=== PATIENT | female | born 1975 | race Caucasian/White ===

== ENCOUNTER 2019-06-26 16:21 | Emergency (ER) | payer MEDICARE, MEDICAID, SELFPAY ==
[2019-06-26 16:26] VITALS: BP 144/105; PULSE 117; RESP 17; TEMP 36.7; O2SAT 93
--- NOTE | 2019-06-26 16:31 | CTR_ITS ---
PROCEDURE INFORMATION: Exam: CT Head Without Contrast Exam date and time: 06/26/2019 4:41 PM Age: 43 years old Clinical indication: Speech disturbance and weakness, facial; Slurred speech; Additional info: Facial droop, left sided. Slurred speech TECHNIQUE: Imaging protocol: Computed tomography of the head without contrast. Total DLP: 792.91 mGy-cm Radiation optimization: All CT scans at this facility use at least one of these dose optimization techniques: automated exposure control; mA and/or kV adjustment per patient size (includes targeted exams where dose is matched to clinical indication); or iterative reconstruction. COMPARISON: No relevant prior studies available. FINDINGS: Brain: No acute intracranial hemorrhage, cerebral edema, or midline shift. Ventricles: No hydrocephalus. Bones/joints: No acute fracture. Sinuses: No acute sinusitis. Mastoid air cells: Visualized mastoid air cells are well aerated. Soft tissues: Unremarkable. CT/CT head wo con* [id number] IMPRESSION: No acute intracranial abnormality. Radiation Dose CTDIVOL = (mGy): DLP = 792.91 (mGy-cm)
--- NOTE | 2019-06-26 16:31 | ECG_ITS ---
Measurements Intervals [place] Rate: 110 P: 64 KS: 169 QRS: 74 QRSD: 102 T: -64 QT: 332 QTc: 450 SINUS TACHYCARDIA LOW QRS VOLTAGE IN PRECORDIAL LEADS [QRS DEFLECTION < 1.0 mV IN CHEST LEADS] ST DEVIATION AND MODERATE T-WAVE ABNORMALITY, CONSIDER ANTEROLATERAL ISCHEMIA [-0 [-0.1+ mV T WAVE IN V3-V6] ST DEVIATION AND MODERATE T-WAVE ABNORMALITY, CONSIDER INFERIOR ISCHEMIA [-0.1+ mV mV mV mV T WAVE IN II/aVF] No previous ECG available for comparison Electronically Signed On 06-26-2019 19:24:11 CDT by Deidre Graham M.D. [id number]
--- NOTE | 2019-06-26 16:32 | W.ED.NEUROSD ---
HPI - Neuro Symptoms/Deficit General: Chief Complaint: Neuro Symptoms/Deficit Stated Complaint: facial drooping Time Seen by Provider: 06/26/19 16:27 Source: patient Mode of arrival: ambulatory Limitations: no limitations History of Present Illness: HPI Narrative: 43-year-old female who states that last night she started getting right sided facial droop this and numbness. She states she had some difficulty speaking due to difficulty moving the right side of her mouth. She has no other symptoms. She denies any visual deficits. She denies any weakness. 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 Onset (ago): day(s) Timing confirmed by: spouse Location: right face History of same: No Severity: moderate Quality: weak Relieving factors: none Exacerbating factors: none Associated symptoms: Deny chest pain, headache(s), nausea or vomiting Review of Systems Const: Denies: fever, chills, body aches or change in appetite Eyes: Denies: blurry vision or eye discomfort ENMT: Denies: throat pain or dental pain Card: Denies: chest pain Resp: Denies: shortness of breath GI: Denies: abdominal pain, nausea, vomiting or diarrhea : Denies: painful urination Musc: Denies: neck pain or back pain Skin/Breast: Denies: rash Neuro: Denies: headache Psych: Denies: depression Mark/Lymph: Denies: easy bruising All/Imm: Denies: hives PFSH ED PFSH: Social History Smoking and tobacco status: current every day smoker NIH stroke score NIHSS: Level Of Consciousness - 1a: 0 Level Of Consciousness Questions - 1b: Both Correct Level Of Consciousness Commands - 1c: Both Correct Best Gaze - 2: Normal Visual Howard - 3: No Visual Loss Facial Palsy - 4: Partial Paralysis Motor Arm Right - 5: No Drift Motor Arm Left - 5: No Drift Motor Leg Right - 6: No Drift Motor Leg Left - 6: No Drift Limb Ataxia - 7: Absent Sensory - 8: Normal Best Language - 9: No Aphasia Dysarthia - 10: Normal Extinction And Inattention - 11: 0 Score: Total Score: 2 Physical Exam Const: COMMON NORMALS: no apparent distress, oriented x3 and healthy appearing HENMT: COMMON NORMALS: normocephalic and head/scalp atraumatic HEAD & SCALP: normocephalic and atraumatic Eye: COMMON NORMALS: PERRL and EOMs intact bilaterally PUPIL: Yes PERRL Neck/C-Spine: COMMON NORMALS: full ROM and supple Chest: COMMONS NORMALS: inspection of chest normal and palpation of chest normal Resp: COMMON NORMALS: normal respiratory effort, no retractions, no use of accessory muscles and clear to auscultation bilaterally AUSCULTATION: clear to auscultation bilaterally Cardio: COMMON NORMALS: regular rate, regular rhythm and no murmurs RATE: regular rate RHYTHM: regular rhythm GI: COMMON NORMALS: normal to inspection, nondistended, normoactive bowel sounds, soft to palpation, non-tender and no masses PALPATION: Yes soft Extremity: COMMON NORMALS: normal to inspection and full ROM Neuro: COMMON NORMALS: oriented x3, moves all extremities and no focal motor deficits OTHER: 5 out of 5 strength to all extremities. Extraocular movement intact and no visual deficits. 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 Psych: COMMON NORMALS: mental status grossly normal, thought process normal and cooperative THOUGHT PROCESS: normal thought process Skin: COMMON NORMALS: no rashes or lesions noted and no wounds GENERAL SKIN EXAM: no rashes or lesions noted Course Vital Signs: Vital signs: Vital Signs Temperature 98.0 F 06/26/19 16:26 Pulse Rate 107 H 06/26/19 17:18 Respiratory Rate 20 H 06/26/19 17:18 Blood Pressure 123/102 06/26/19 17:18 Pulse Oximetry 94 06/26/19 17:18 MDM - Neuro Symptoms/Deficit MDM Narrative: Medical decision making narrative: Pt presents here with facial droop c/w bells palsy. pt has no signs of a stroke. Pt is stable for discharge and is to return if worsening. WIll place her on prednisone and acyclovir EKG Data^: EKG 1: Attestation: I personally reviewed and interpreted this EKG as follows: EKG interpretation date: 06/26/19 EKG interpretation time: 16:55 Interpretation: sinus tach hr [address] or t wave abnormalities qrs 102 qtc 397 Discharge Plan Discharge Patient Disposition: Home, Self-Care Clinical Impression: Maya's palsy Condition: Stable Prescriptions: New prednisone 50 mg tablet 50 mg PO DAILY Qty: 5 RF: 0 acyclovir 400 mg tablet 400 mg PO 5XD Qty: 35 RF: 0 No Action cyclobenzaprine 10 mg tablet 10 mg PO TID PRN (Reason: Spasms) RF: 0 ibuprofen 800 mg tablet 800 mg PO TID PRN (Reason: Pain) RF: 0 venlafaxine 150 mg capsule,extended release 24hr 300 mg PO DAILY RF: 0 losartan-hydrochlorothiazide 100-25 mg tablet 1 tab PO DAILY RF: 0 Xanax 0.5 mg tablet 0.5 mg PO QID PRN (Reason: Anxiety) RF: 0 omeprazole 20 mg capsule,delayed release(DR/EC) 20 mg PO BID RF: 0 Ventolin HFA 90 mcg/actuation Hfa Aerosol Inhaler 2 puff INHALATION Q4H PRN (Reason: Shortness Of Breath) RF: 0 Spiriva with HandiHaler 18 mcg capsule, w/inhalation device 1 cap INHALATION DAILY RF: 0 Tylenol Extra Strength 1,000 mg PO BID PRN (Reason: Pain) RF: 0 Discharge Orders: Discharge Order (Routine); Ordered 06/26/19 Ordered By: Giselle Boyd Referrals: Kishor Valdes MD [Primary Care Provider] - 4-7 days Discharge Diet: Advance as tolerated Discharge Activity: Resume usual activity Patient Instructions: Maya Palsy (ED) Discharge Date/Time: 06/26/19 17:18 Coding Level of Care Code 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
[2019-06-26 17:18] VITALS: BP 123/102; PULSE 107; RESP 20; O2SAT 94
== END 2019-06-26 17:18 | disposition home or self-care (01) ==
PROVIDERS: Emergency Provider Emergency Medicine; Family Provider Family Medicine; PCP Family Medicine
DX: G51.0 Bell's palsy (principal); F17.200 Nicotine dependence, unspecified, uncomplicated
CPT/HCPCS: 12345; 70450; 93005; 99281; 99283

== ENCOUNTER 2020-10-01 16:41 | Emergency (ER) | payer MEDICARE, MEDICAID, SELFPAY ==
[2020-10-01 16:55] VITALS: BP 163/98; PULSE 117; RESP 22; TEMP 37.4; O2SAT 92; BMI 35.3
--- NOTE | 2020-10-01 16:58 | XRR_ITS ---
PROCEDURE INFORMATION: Exam: XR Chest Exam date and time: 10/01/2020 4:58 PM Age: 44 years old Clinical indication: Cough TECHNIQUE: Imaging protocol: XR of the chest. Views: 1 view. Total images: 1 COMPARISON: CT abdomen pelvis w con* [id number] 06/10/2015 9:41 AM FINDINGS: Lungs: Minimal dependent atelectasis right lung base. No other evidence of active interstitial or alveolar airspace disease. Pleural spaces: Unremarkable. No pleural effusion. No pneumothorax. Heart/Mediastinum: Unremarkable. No cardiomegaly. Bones/joints: Unremarkable. XR/XR chest 1V portable [id number] IMPRESSION: Minimal dependent atelectasis right lung base.
--- NOTE | 2020-10-01 16:58 | ECG_ITS ---
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 Measurements Intervals [place] Rate: 107 P: 63 MN: 165 QRS: 68 QRSD: 101 T: 1 QT: 317 QTc: 424 Interpretive Statements SINUS TACHYCARDIA LOW QRS VOLTAGE IN PRECORDIAL LEADS [QRS DEFLECTION < 1.0 mV IN CHEST LEADS] ST DEVIATION AND MODERATE T-WAVE ABNORMALITY, CONSIDER ANTEROLATERAL ISCHEMIA [-0.1+ mV T WAVE IN V3-V6] Compared to ECG 06/26/2019 16:55:09 No significant changes Electronically Signed On 10-01-2020 22:54:07 CDT by Castro Fuentes M.D. [id number]
--- NOTE | 2020-10-01 16:59 | ED_ITS ---
Documented by User: Singh Shaw MD 10/01/20 17:49 HPI - SOB/Dyspnea General: Chief Complaint: Shortness of Breath/Dyspnea Stated Complaint: RESP DISTRESS, MILD WHEEZED, COPD EXACERBATION Time Seen by Provider: 10/01/20 16:57 History of Present Illness: HPI Narrative: This patient is a 44-year-old female who presents to the emergency department complaining of shortness of breath is been going on for 2 days. Patient recently traveled back home from [place] vacation started about the shortness of breath. Patient is a smoker of a pack per day but states now she can only smoke about 2 cigarettes has a shortness of breath. Patient does have a history of COPD patient denies any significant cough or fever. Patient states she does take 3 medications at home for her COPD but does not wear oxygen at home. Patient's pulse ox on room air was 89%. Patient did receive albuterol and a DuoNeb inhaled breathing treatment in route to the hospital. Will do medical evaluation treat as MD elicited complaint: shortness of breath Pertinent past history: COPD Onset (ago): day(s) Severity: similar to previous episodes Associated symptoms: Deny abdominal pain, chest pain, extremity pain, fever(s), lightheadedness, nausea, palpitations or vomiting Review of Systems General: Reports: 10 or more systems reviewed and unremarkable except in HPI and below Const: Denies: fever(s), chills, body aches or fatigue Eyes: Denies: change in vision or blurry vision ENMT: Denies: throat pain, hoarseness or mouth pain Card: Denies: chest pain, palpitations, irregular heart rhythm, edema, swelling of feet/ankles or lightheadedness Resp: Reports: dyspnea; Denies: productive cough, non-productive cough, wheezing or pain on inspiration GI: Denies: abdominal pain, nausea or vomiting : Denies: flank pain, difficulty voiding, dysuria, urinary frequency, urinary urgency or urinary hesitancy Musc: Denies: neck pain, back pain, extremity pain, extremity swelling, joint pain, joint swelling, joint redness, joint warmth or limited range of motion Skin/Breast: Denies: rash, pruritus, erythema or skin tenderness Neuro: Denies: headache(s), numbness in extremities or weakness in extremities Psych: Denies: anxiety or depression PFSH ED PFSH: Social History Smoking and tobacco status: current every day smoker Physical Exam Const: COMMON NORMALS: no acute distress, average body habitus, patient oriented x3, no limitations, healthy appearing, alert and well nourished HENMT: COMMON NORMALS: normocephalic, atraumatic, hearing grossly normal bilaterally, external ears normal, EAC's normal, TM's normal bilaterally, Normal external nose present, Normal nasal mucous membranes and turbinates present, moist oral mucous membranes, oropharynx normal, dentition normal and gingiva normal HEAD & SCALP: normocephalic and atraumatic NOSE: Normal external nose present and Normal nasal mucous membranes and turbinates present 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 external ears normal EXTERNAL AUDITORY CANAL: EAC's normal TYMPANIC MEMBRANE: TM's normal bilaterally Neck/C-Spine: COMMON NORMALS: full ROM, no lymphadenopathy, supple, no meningeal signs, no JVD, Thyroid normal and No carotid bruits THYROID: Thyroid normal Chest: COMMONS NORMALS: normal inspection of the chest, normal palpation of entire chest wall, normal inspection of the breasts and normal palpation of the breasts Breast/axilla inspection: Yes normal inspection of the breasts BREAST/AXILLA PALPATION: Yes normal palpation of the breasts Resp: COMMON NORMALS: normal respiratory effort, No retractions, No use of accessory muscles, clear to auscultation bilaterally and percussion normal AUSCULTATION: clear to auscultation bilaterally PERCUSSION: percussion normal Cardio: COMMON NORMALS: no JVD, regular rate, regular rhythm, S1 normal heart sound present, S2 normal heart sound present, No gallops present (Cardio), No clicks present (Cardio), No murmurs present (Cardio), No rub (Cardio) and Peripheral pulses 2+ throughout RATE: regular rate RHYTHM: regular rhythm HEART SOUNDS: S1 normal heart sound present and S2 normal heart sound present PERIPHERAL PULSES: Peripheral pulses 2+ throughout GI: COMMON NORMALS: Normal to inspection, nondistended, normoactive bowel sounds present, Soft to palpation, non-tender, No hepatosplenomegaly present, no masses and no bruits PALPATION: Yes Soft to palpation and Yes No hepatosplenomegaly present Back/Pelvis: COMMON NORMALS: thoracic and lumbar spine normal to inspection, no thoracic nor lumbar tenderness, thoraco-lumbar ROM normal and straight leg raise negative bilaterally Extremity: COMMON NORMALS: normal to inspection, full ROM, capillary refill normal, no joint enlargement, no clubbing, cyanosis or edema, no calf tenderness and no pedal edema Neuro: COMMON NORMALS: patient oriented x3 SENSORIUM/ORIENTATION: Yes alert MENINGEAL SIGNS: Yes no meningeal signs Course Consultations: Consultation #1: Care transferred to Dr. Giang for shift change Time: 17:26 Vital Signs: Vital signs: Vital Signs Temperature 99.3 F 10/01/20 16:55 Pulse Rate 111 H 10/01/20 20:43 Respiratory Rate 17 10/01/20 20:43 Blood Pressure 141/82 10/01/20 20:43 Pulse Oximetry 92 10/01/20 20:43 MDM - SOB/Dyspnea Medical Records: Attestation: I reviewed the patient's medical records. Lab Data: Attestation: I reviewed the patient's lab results. Labs: Lab Results 10/01/20 10/01/20 10/01/20 Range/Units 17:12 17:12 17:12 WBC 10.3 H (4.0-10.0) 10^3/ uL RBC 4.23 (4.1-5.3) 10^6/u L Hgb 15.3 (11.5-15.3) g/dL Hct 43.2 (37.0-47.0) % MCV 102.1 H (81-99) fL MCH 36.2 H (28.0-34.0) pg MCHC 35.4 (30.0-36.0) g/dL RDW 13.2 (12.1-15.1) % Plt Count 290 (130-400) 10^3/c mm MPV 10.8 H (7.4-10.4) fL Neut % (Auto) 71.3 % Lymph % (Auto) 16.9 % Izard % (Auto) 10.6 % Eos % (Auto) 0.7 % Baso % (Auto) 0.3 % Neut # (Auto) 7.33 (1.8-7.7) 10^3/u L Lymph # (Auto) 1.7 (0.8-4.8) 10^3/u L Izard # (Auto) 1.1 H (0.2-0.9) 10^3/u L Eos # (Auto) 0.1 (0.0-0.8) 10^3/u L Baso # (Auto) 0.0 (0.0-0.1) 10^3/u L Nucleated RBC % (a uto) 0 % Nucleated RBCs # 0.0 /100WBC PT 12.70 (12.1-14.9) SECO NDS INR 0.93 (0.8-1.2) APTT 29.4 (23.9-36.7) SECO NDS D-Dimer 0.77 H (0-0.59) ug/mIFE U Sodium 139 (136-145) mmol/L Potassium 3.0 L (3.5-5.1) mmol/L Chloride 100 (98-107) mmol/L Carbon Dioxide 26 (22-29) mmol/L Anion Gap 16.0 (5-19) BUN 7 (6-20) mg/dL Creatinine 0.4 L (0.5-0.9) mg/dL GFR Calculation 175.0 H (90-130) mL/min Glucose 115 (65-115) mg/dL Calculated Osmolal ity 287 (285-295) mOsm/k g Calcium 8.7 (8.5-10.5) mg/dL Total Bilirubin 0.2 (0.15-1.2) mg/dL AST 25 (0-32) U/L ALT 24 (0-33) U/L Alkaline Phosphata se 97 (35-105) IU/L Troponin T Gen 5 n g/L (0-10) ng/L Total Protein 6.8 (6.6-8.7) g/dL Albumin 3.8 (3.5-5.2) g/dL Globulin 3.0 (1.3-4.6) g/dL SARS-CoV-2 Ag (Rap id) (Negative) 10/01/20 10/01/20 Range/Units 17:12 17:43 WBC (4.0-10.0) 10^3/ uL RBC (4.1-5.3) 10^6/u L Hgb (11.5-15.3) g/dL Hct (37.0-47.0) % MCV (81-99) fL MCH (28.0-34.0) pg MCHC (30.0-36.0) g/dL RDW (12.1-15.1) % Plt Count (130-400) 10^3/c mm MPV (7.4-10.4) fL Neut % (Auto) % Lymph % (Auto) % Izard % (Auto) % Eos % (Auto) % Baso % (Auto) % Neut # (Auto) (1.8-7.7) 10^3/u L Lymph # (Auto) (0.8-4.8) 10^3/u L Izard # (Auto) (0.2-0.9) 10^3/u L Eos # (Auto) (0.0-0.8) 10^3/u L Baso # (Auto) (0.0-0.1) 10^3/u L Nucleated RBC % (a uto) % Nucleated RBCs # /100WBC PT (12.1-14.9) SECO NDS INR (0.8-1.2) APTT (23.9-36.7) SECO NDS D-Dimer (0-0.59) ug/mIFE U Sodium (136-145) mmol/L Potassium (3.5-5.1) mmol/L Chloride (98-107) mmol/L Carbon Dioxide (22-29) mmol/L Anion Gap (5-19) BUN (6-20) mg/dL Creatinine (0.5-0.9) mg/dL GFR Calculation (90-130) mL/min Glucose (65-115) mg/dL Calculated Osmolal ity (285-295) mOsm/k g Calcium (8.5-10.5) mg/dL Total Bilirubin (0.15-1.2) mg/dL AST (0-32) U/L ALT (0-33) U/L Alkaline Phosphata se (35-105) IU/L Troponin T Gen 5 n g/L 6 (0-10) ng/L Total Protein (6.6-8.7) g/dL Albumin (3.5-5.2) g/dL Globulin (1.3-4.6) g/dL SARS-CoV-2 Ag (Rap id) Negative (Negative) Imaging Data^: CXR: Attestation: I personally reviewed and interpreted this imaging study as follows: Radiologist's impression: MPRESSION: Minimal dependent atelectasis right lung base. EKG Data^: EKG 1: Attestation: I personally reviewed and interpreted this EKG as follows: EKG Interpretation Date: 10/01/20 EKG interpretation time: 17:08 Prior EKG tracings: not available for review Interpretation: Sinus tachycardia heart rate 107 Discharge Plan Discharge Patient Disposition: Home Clinical Impression: Asthma with exacerbation, Hypoxia, Tachycardia Condition: Stable Prescriptions: No Action cyclobenzaprine 10 mg tablet 10 mg PO TID PRN (Reason: Spasms) RF: 0 ibuprofen 800 mg tablet 800 mg PO TID PRN (Reason: Pain) RF: 0 venlafaxine 150 mg capsule,extended release 24hr 300 mg PO DAILY RF: 0 acetaminophen [Tylenol Extra Strength] 500 mg Tablet 500 mg PO BID PRN (Reason: Pain) RF: 0 losartan-hydrochlorothiazide 100-25 mg tablet 1 tab PO DAILY RF: 0 alprazolam [Xanax] 0.5 mg tablet 0.5 mg PO QID PRN (Reason: Anxiety) RF: 0 omeprazole 20 mg capsule,delayed release(DR/EC) 20 mg PO BID RF: 0 albuterol sulfate [Ventolin HFA] 90 mcg/actuation Hfa Aerosol Inhaler 2 puff INHALATION Q4H PRN (Reason: Shortness Of Breath) RF: 0 Spiriva with HandiHaler 18 mcg capsule, w/inhalation device 1 cap INHALATION DAILY RF: 0 Wixela Inhub 250-50 mcg/dose Blister With Device 1 inh INHALATION BID RF: 0 atorvastatin 10 mg Tablet 10 mg PO DAILY RF: 0 potassium chloride 10 mEq Tablet Extended Release 10 meq PO DAILY RF: 0 docusate sodium 100 mg Capsule 400 mg PO DAILY RF: 0 Linzess 145 mcg Capsule 145 mcg PO DAILY RF: 0 Discharge Orders: Discharge ED (Routine); Ordered 10/01/20 Ordered By: Claus Giang Other Ambulatory Orders: DME: Oxygen (Order) Location: None Selected Ordered By: Claus Giang Referrals: Kishor Valdes MD [Primary Care Provider] - Discharge Diet: Low Salt Discharge Activity: Increase activity as tolerated Patient Instructions: Opioid Safety Activity Restrictions/Additional Instructions: Today in the emergency department, your testing did not show evidence of COVID-19, blood clots, pneumonia, or other obvious sources of your low oxygen level. Please purchase a pulse oximeter so that you can check your oxygen levels at home. If you drop below 90 when using her supplemental oxygen, that is a reason to return the emergency department. Additionally, if you feel that your shortness of breath is getting worse, start having a fever, low blood pressure, or feel like you might pass out, those are all good reasons to return the emergency department immediately for higher level of care. Coding Level of Care Code ED Viticulturist for Chg Fwd Exam Comprehensive Documented by User: Claus Giang MD 10/01/20 22:06 HPI - SOB/Dyspnea General: Chief Complaint: Shortness of Breath/Dyspnea Stated Complaint: RESP DISTRESS, MILD WHEEZED, COPD EXACERBATION Time Seen by Provider: 10/01/20 16:57 PFSH ED PFSH: Social History Smoking and tobacco status: current every day smoker Course Vital Signs: Vital signs: Vital Signs Temperature 99.3 F 10/01/20 16:55 Pulse Rate 111 H 10/01/20 20:43 Respiratory Rate 17 10/01/20 20:43 Blood Pressure 141/82 10/01/20 20:43 Pulse Oximetry 92 10/01/20 20:43 MDM - SOB/Dyspnea MDM Narrative: Medical decision making narrative: Patient remained mildly tachypneic, mildly tachycardic, and borderline hypoxic throughout ED course. On room air, she is saturating 89%, however she is using accessory muscles to breathe deeply. On 2 L nasal cannula, work of breathing decreases significantly. D-dimer was elevated prompting CT of the chest which does not show evidence of PE, nor does it show groundglass opacities concerning for COVID-19. COVID-19 antigen test is negative. Besides her cough and shortness of breath with exertion, she has no other acute complaints. She denies chest pain, loss of taste or smell sensation, generalized aches or fevers. I suspect she likely is suffering from a viral process. She received Decadron in the emergency department. She will be discharged in stable condition with home oxygen knowing that she should return to the emergency department immediately if her symptoms get worse before outpatient follow-up. Lab Data: Labs: Lab Results 10/01/20 10/01/20 10/01/20 Range/Units 17:12 17:12 17:12 WBC 10.3 H (4.0-10.0) 10^3/ uL RBC 4.23 (4.1-5.3) 10^6/u L Hgb 15.3 (11.5-15.3) g/dL Hct 43.2 (37.0-47.0) % MCV 102.1 H (81-99) fL MCH 36.2 H (28.0-34.0) pg MCHC 35.4 (30.0-36.0) g/dL RDW 13.2 (12.1-15.1) % Plt Count 290 (130-400) 10^3/c mm MPV 10.8 H (7.4-10.4) fL Neut % (Auto) 71.3 % Lymph % (Auto) 16.9 % Izard % (Auto) 10.6 % Eos % (Auto) 0.7 % Baso % (Auto) 0.3 % Neut # (Auto) 7.33 (1.8-7.7) 10^3/u L Lymph # (Auto) 1.7 (0.8-4.8) 10^3/u L Izard # (Auto) 1.1 H (0.2-0.9) 10^3/u L Eos # (Auto) 0.1 (0.0-0.8) 10^3/u L Baso # (Auto) 0.0 (0.0-0.1) 10^3/u L Nucleated RBC % (a uto) 0 % Nucleated RBCs # 0.0 /100WBC PT 12.70 (12.1-14.9) SECO NDS INR 0.93 (0.8-1.2) APTT 29.4 (23.9-36.7) SECO NDS D-Dimer 0.77 H (0-0.59) ug/mIFE U Sodium 139 (136-145) mmol/L Potassium 3.0 L (3.5-5.1) mmol/L Chloride 100 (98-107) mmol/L Carbon Dioxide 26 (22-29) mmol/L Anion Gap 16.0 (5-19) BUN 7 (6-20) mg/dL Creatinine 0.4 L (0.5-0.9) mg/dL GFR Calculation 175.0 H (90-130) mL/min Glucose 115 (65-115) mg/dL Calculated Osmolal ity 287 (285-295) mOsm/k g Calcium 8.7 (8.5-10.5) mg/dL Total Bilirubin 0.2 (0.15-1.2) mg/dL AST 25 (0-32) U/L ALT 24 (0-33) U/L Alkaline Phosphata se 97 (35-105) IU/L Troponin T Gen 5 n g/L (0-10) ng/L Total Protein 6.8 (6.6-8.7) g/dL Albumin 3.8 (3.5-5.2) g/dL Globulin 3.0 (1.3-4.6) g/dL SARS-CoV-2 Ag (Rap id) (Negative) 10/01/20 10/01/20 Range/Units 17:12 17:43 WBC (4.0-10.0) 10^3/ uL RBC (4.1-5.3) 10^6/u L Hgb (11.5-15.3) g/dL Hct (37.0-47.0) % MCV (81-99) fL MCH (28.0-34.0) pg MCHC (30.0-36.0) g/dL RDW (12.1-15.1) % Plt Count (130-400) 10^3/c mm MPV (7.4-10.4) fL Neut % (Auto) % Lymph % (Auto) % Izard % (Auto) % Eos % (Auto) % Baso % (Auto) % Neut # (Auto) (1.8-7.7) 10^3/u L Lymph # (Auto) (0.8-4.8) 10^3/u L Izard # (Auto) (0.2-0.9) 10^3/u L Eos # (Auto) (0.0-0.8) 10^3/u L Baso # (Auto) (0.0-0.1) 10^3/u L Nucleated RBC % (a uto) % Nucleated RBCs # /100WBC PT (12.1-14.9) SECO NDS INR (0.8-1.2) APTT (23.9-36.7) SECO NDS D-Dimer (0-0.59) ug/mIFE U Sodium (136-145) mmol/L Potassium (3.5-5.1) mmol/L Chloride (98-107) mmol/L Carbon Dioxide (22-29) mmol/L Anion Gap (5-19) BUN (6-20) mg/dL Creatinine (0.5-0.9) mg/dL GFR Calculation (90-130) mL/min Glucose (65-115) mg/dL Calculated Osmolal ity (285-295) mOsm/k g Calcium (8.5-10.5) mg/dL Total Bilirubin (0.15-1.2) mg/dL AST (0-32) U/L ALT (0-33) U/L Alkaline Phosphata se (35-105) IU/L Troponin T Gen 5 n g/L 6 (0-10) ng/L Total Protein (6.6-8.7) g/dL Albumin (3.5-5.2) g/dL Globulin (1.3-4.6) g/dL SARS-CoV-2 Ag (Rap id) Negative (Negative) Discharge Plan Discharge Patient Disposition: Home Clinical Impression: Asthma with exacerbation, Hypoxia, Tachycardia Condition: Stable Prescriptions: No Action cyclobenzaprine 10 mg tablet 10 mg PO TID PRN (Reason: Spasms) RF: 0 ibuprofen 800 mg tablet 800 mg PO TID PRN (Reason: Pain) RF: 0 venlafaxine 150 mg capsule,extended release 24hr 300 mg PO DAILY RF: 0 acetaminophen [Tylenol Extra Strength] 500 mg Tablet 500 mg PO BID PRN (Reason: Pain) RF: 0 losartan-hydrochlorothiazide 100-25 mg tablet 1 tab PO DAILY RF: 0 alprazolam [Xanax] 0.5 mg tablet 0.5 mg PO QID PRN (Reason: Anxiety) RF: 0 omeprazole 20 mg capsule,delayed release(DR/EC) 20 mg PO BID RF: 0 albuterol sulfate [Ventolin HFA] 90 mcg/actuation Hfa Aerosol Inhaler 2 puff INHALATION Q4H PRN (Reason: Shortness Of Breath) RF: 0 Spiriva with HandiHaler 18 mcg capsule, w/inhalation device 1 cap INHALATION DAILY RF: 0 Wixela Inhub 250-50 mcg/dose Blister With Device 1 inh INHALATION BID RF: 0 atorvastatin 10 mg Tablet 10 mg PO DAILY RF: 0 potassium chloride 10 mEq Tablet Extended Release 10 meq PO DAILY RF: 0 docusate sodium 100 mg Capsule 400 mg PO DAILY RF: 0 Linzess 145 mcg Capsule 145 mcg PO DAILY RF: 0 Discharge Orders: Discharge ED (Routine); Ordered 10/01/20 Ordered By: Claus Giang Other Ambulatory Orders: DME: Oxygen (Order) Location: None Selected Ordered By: Claus Giang Referrals: Kishor Valdes MD [Primary Care Provider] - Discharge Diet: Low Salt Discharge Activity: Increase activity as tolerated Patient Instructions: Opioid Safety Activity Restrictions/Additional Instructions: Today in the emergency department, your testing did not show evidence of COVID- 19, blood clots, pneumonia, or other obvious sources of your low oxygen level. Please purchase a pulse oximeter so that you can check your oxygen levels at home. If you drop below 90 when using her supplemental oxygen, that is a reason to return the emergency department. Additionally, if you feel that your shortness of breath is getting worse, start having a fever, low blood pressure, or feel like you might pass out, those are all good reasons to return the emergency department immediately for higher level of care. Coding Level of Care Code ED Viticulturist for [facility] Exam Comprehensive
[2020-10-01 17:02] VITALS: BP 149/103; PULSE 112; RESP 22; O2SAT 94
[2020-10-01] MEDS: dexamethasone 10 mg/mL INJ IM (17:11)
[2020-10-01 17:23] LABS: Basophils % 0.3 %; Eosinophils # 0.1 10^3/uL (0.0-0.8); Eosinophils % 0.7 %; Hematocrit 43.2 % (37.0-47.0); Hemoglobin 15.3 g/dL (11.5-15.3); Lymphocytes # 1.7 10^3/uL (0.8-4.8); Lymphocytes % 16.9 %; Mean Corpuscular HGB Conc 35.4 g/dL (30.0-36.0); Mean Corpuscular Hemoglobin 36.2 pg (28.0-34.0); Mean Corpuscular Volume 102.1 fL (81-99); Mean Platelet Volume 10.8 fL (7.4-10.4); Monocytes # 1.1 10^3/uL (0.2-0.9); Monocytes % 10.6 %; Neutrophils # 7.33 10^3/uL (1.8-7.7); Neutrophils % 71.3 %; Nucleated Red Blood Cells % 0 %; Platelet Count 290 10^3/cmm (130-400); Red Blood Count 4.23 10^6/uL (4.1-5.3); Red Cell Distribution Width 13.2 % (12.1-15.1); White Blood Count 10.3 10^3/uL (4.0-10.0)
[2020-10-01 17:44] LABS: INR 0.93 (0.8-1.2); Partial Thromboplastin Time 29.4 SECONDS (23.9-36.7)
[2020-10-01 17:47] LABS: D Dimer 0.77 ug/mIFEU (0-0.59)
[2020-10-01 17:49] VITALS: BP 149/77; PULSE 115; RESP 18; O2SAT 92
[2020-10-01 18:01] LABS: Alanine Aminotransferase 24 U/L (0-33); Albumin Level 3.8 g/dL (3.5-5.2); Alkaline Phosphatase 97 IU/L (35-105); Aspartate Amino Transferase 25 U/L (0-32); Blood Urea Nitrogen 7 mg/dL (6-20); Calcium 8.7 mg/dL (8.5-10.5); Carbon Dioxide 26 mmol/L (22-29); Chloride 100 mmol/L (98-107); Glucose 115 mg/dL (65-115); Osmolality Calculated 287 mOsm/kg (285-295); Sodium 139 mmol/L (136-145); Total Bilirubin 0.2 mg/dL (0.15-1.2); Total Protein 6.8 g/dL (6.6-8.7)
[2020-10-01 18:02] LABS: Troponin T (5th) Once 6 ng/L (0-10)
[2020-10-01 18:24] LABS: SARS Covid-2 Antigen Negative (Negative)
--- NOTE | 2020-10-01 19:24 | CTR_ITS ---
PROCEDURE INFORMATION: Exam: CTA Chest With Contrast Exam date and time: 10/01/2020 7:24 PM Age: 44 years old Clinical indication: Cough and shortness of breath; Additional info: Elevated dimer, hypoxic TECHNIQUE: Imaging protocol: Computed tomographic angiography of the chest with contrast. 3D rendering (Not supervised by radiologist): MIP and/or 3D reconstructed images were created by the technologist. Total images: 924 Radiation optimization: All CT scans at this facility use at least one of these dose optimization techniques: automated exposure control; mA and/or kV adjustment per patient size (includes targeted exams where dose is matched to clinical indication); or iterative reconstruction. Contrast material: OMNI 350; Contrast volume: 66 ml; Contrast route: INTRAVENOUS (IV); COMPARISON: CR XR chest 1V portable [id number] 10/01/2020 4:59 PM RADIATION DOSE METRICS: Total DLP (mGy-cm): 597.74 FINDINGS: Pulmonary arteries: No visible evidence of pulmonary embolism/pulmonary arterial thrombus. Aorta: The thoracic aorta is nonaneurysmal. No visible intimal flap or dissection. Lungs: Evidence of minimal centrilobular emphysema of the lung apices. Calcified granulomas of antecedent disease. Minimal discoid atelectasis anterior bases of the lingula and right middle lobe. No visible definitive evidence of active interstitial or alveolar airspace disease. Pleural spaces: Unremarkable. No pneumothorax. No pleural effusion. Heart: No cardiomegaly. No visible pericardial effusion. No visible coronary artery disease. Lymph nodes: Few marginally prominent mediastinal and hilar lymph nodes. Dominant pretracheal lymph node measures only 9 mm in the short axis. Clinical significance indeterminate. Gallbladder and bile ducts: Cholelithiasis. Bones/joints: No visible active or acute osseous pathology. Soft tissues: Unremarkable. CT/CT angio chest PE protcl [id number] IMPRESSION: 1. No visible evidence of pulmonary embolism/pulmonary arterial thrombus. 2. Evidence of minimal centrilobular emphysema of the lung apices. 3. Calcified granulomas of antecedent disease. 4. Minimal discoid atelectasis. 5. Cholelithiasis. 6. Few marginally prominent mediastinal hilar lymph nodes of indeterminate clinical significance. Radiation Dose CTDIVOL = (mGy): DLP = 597.74 (mGy-cm)
[2020-10-01] MEDS: iohexol 350 mg/mL 100 mL Btl IV (19:44)
[2020-10-01 20:43] VITALS: BP 141/82; PULSE 111; RESP 17; O2SAT 92
[2020-10-01 22:00] VITALS: BP 141/82; PULSE 111; RESP 19; O2SAT 91
[2020-10-01 22:13] VITALS: O2SAT 84; O2SAT 89; O2SAT 93
[2020-10-02 00:19] VITALS: BP 136/95; PULSE 105; RESP 18; O2SAT 94
== END 2020-10-02 00:23 | disposition home or self-care (01) ==
PROVIDERS: Emergency Provider Emergency Medicine; PCP Family Medicine
DX: J45.901 Unspecified asthma with (acute) exacerbation (principal); R09.02 Hypoxemia; R00.0 Tachycardia, unspecified; F17.210 Nicotine dependence, cigarettes, uncomplicated; Z20.822 Contact with and (suspected) exposure to COVID-19
CPT/HCPCS: 71045; 71275; 80053; 84484; 85025; 85378; 85610; 85730; 87426; 93005; 96372; 99284; J1100; Q9967

== ENCOUNTER 2021-05-27 07:57 | Outpatient (CLI) | payer MEDICARE, MEDICAID, SELFPAY ==
--- NOTE | 2021-05-27 08:13 | MM_ITS ---
WS: [id number] BILATERAL DIGITAL SCREENING MAMMOGRAPHY WITH CAD CLINICAL INFORMATION: SCREENING HISTORY: Screening mammogram. No current complaints. COMPARISON: TECHNIQUE: Bilateral CC and MLO views. FINDINGS: The breasts are composed of heterogeneous fibroglandular density tissue, which can limit the detectio n of small underlying mass lesions. Stable ovoid intramammary lymph nodes upper outer LEFT breast and central upper LEFT breast. A few tiny incidental punctate calcifications RIGHT breast. No suspicious mass, asymmetry, calcifications, or architectural distortion. No evidence of malignancy. MM/[place] [id number] IMPRESSION: BI-RADS: 2-Benign FOLLOW UP: 1 Year Follow-up Recommend return to annual screening mammography.
== END 2021-05-27 07:58 | disposition home or self-care (01) ==
LOC: RADSHAW 07:59
PROVIDERS: PCP Family Medicine; Visit Provider Family Medicine
DX: Z12.31 Encounter for screening mammogram for malignant neoplasm of breast (principal)
CPT/HCPCS: 77067

== ENCOUNTER → 2022-02-23 10:02 | Outpatient (BNVA) | payer MEDICARE, MEDICAID, SELFPAY | PROVIDERS: PCP Family Medicine; Referring Provider Family Medicine; Visit Provider Student in an Organized Health Care Education/Training Program | DX: M67.432 Ganglion, left wrist (principal) | CPT/HCPCS: 73110 ==

== ENCOUNTER 2022-02-23 15:20 | Outpatient (CLI) | payer MEDICARE, MEDICAID, SELFPAY | END 2022-02-23 15:21 | disposition home or self-care (01) | LOC: SPT 15:21 | PROVIDERS: PCP Family Medicine; Visit Provider Student in an Organized Health Care Education/Training Program | DX: Z46.89 Encounter for fitting and adjustment of other specified devices (principal); M25.532 Pain in left wrist | CPT/HCPCS: 97760; 99203; L3908 ==

== ENCOUNTER 2024-08-02 11:11 | Outpatient (CLI) | payer MEDICARE, MEDICAID, SELFPAY ==
--- NOTE | 2024-08-02 11:15 | MM_ITS ---
WS: [id number] BILATERAL SCREENING DIGITAL TOMOSYNTHESIS MAMMOGRAM WITH CAD HISTORY: SCREENING COMPARISON: 05/27/2021, 08/15/2009 Bilateral CC and MLO views with tomosynthesis and synthetic mammography submitted. Computer aided detection analyzed. Breast composition: The breasts are heterogeneously dense, which may obscure small masses. No suspicious masses, microcalcifications or architectural distortion. MM/MM scr tomosynthesis [id number] IMPRESSION: BI-RADS: 1 - Negative FOLLOW UP: 1 Year Follow-up
== END 2024-08-02 11:12 | disposition home or self-care (01) ==
LOC: RAD 11:12
PROVIDERS: PCP Family Medicine; Visit Provider Family Medicine
DX: Z12.31 Encounter for screening mammogram for malignant neoplasm of breast (principal); R92.333 Mammographic heterogeneous density, bilateral breasts
CPT/HCPCS: 77063; 77067